=== PATIENT | male | born 1975 | race Caucasian/White ===

== ENCOUNTER 2024-04-29 15:10 | Emergency (ER) | payer BC ==
[~2024-04-29] VITALS: Ht 193 cm; Wt 100.0 kg
[2024-04-29 15:17] VITALS: BP 132/91
[2024-04-29 15:45] VITALS: BP 111/76
[2024-04-29 16:00] VITALS: BP 121/77
[2024-04-29 16:15] VITALS: BP 123/79
[2024-04-29 16:34] VITALS: BP 123/79
== END 2024-04-29 16:34 | disposition home or self-care (01) | DRG 204 ==
LOC: ED 15:10
DX: R07.81 Pleurodynia (principal)